=== PATIENT | female | born 1940 | race African-American/Black ===

== ENCOUNTER 2020-03-20 11:26 | Emergency (ER) | payer OTHER, MEDICAID, SELFPAY ==
[~2020-03-20] VITALS: Ht 170.2 cm; Wt 66.9 kg
[2020-03-20 11:28] VITALS: BP 129/85
--- NOTE | 2020-03-20 11:28 | NUR ---
BIBA TAKEN TO BED 4
--- NOTE | 2020-03-20 11:30 | NUR ---
BIBA BLS C/O NOT EATING OR DRINKING X AM PRE SN[facility] ([facility]) CAREGIVER . PT AWAKE , ALERT, AFIBRILE , SCE , CBS BLF , FLAT SOFT NABS , NONTENDER. NKA PAIN 0/10 HX-A-FIB, DEMENTIA ACCU-80
[2020-03-20] MEDS ORDERED: NACL 0.9% 1,000 ML IV ONE (11:35)
--- NOTE | 2020-03-20 11:42 | NUR ---
PT TO CT SCAN VIA GURNEY .STABLE V/S.
--- NOTE | 2020-03-20 11:59 | NUR ---
emt iss at bedside doin ekg
--- NOTE | 2020-03-20 12:00 | NUR ---
PT BACK FROM CT SCAN VIA [facility].
--- NOTE | 2020-03-20 12:00 | NUR ---
RN ADAM HUMMEL WITH SIMPLE MASK ON, PT WITHOUT SIMPLE MASK ON BECAUSE SHE KEEPS ON TAKING IT OFF. PT HAS A HX OF DEMENTIA. ER MD DR CASTAÑEDA WANTS PT SWAB FOR COVID-19 AFTER SEEING HER XRAY.
[2020-03-20 12:03] LABS: EOSINOPHILS # (AUTO) 0.1 K/uL (0-0.4); HEMOGLOBIN 13.4 g/dL (12.0-16.0); LYMPHOCYTES # (AUTO) 2.5 K/uL (2.5-16.5); MONOCYTES # (AUTO) 0.4 K/uL (0.8-1.0); WHITE BLOOD COUNT (AUTO) 4.6 K/uL (4.8-10.8)
--- NOTE | 2020-03-20 12:09 | NUR ---
DR CASTAÑEDA INFORMED PT O2 SATURATION WAS [address] ON HOLD.
[2020-03-20 12:10] LABS: BASOPHILS % (AUTO) 0.4 % (0.0-2.0); EOSINOPHILS % (AUTO) 1.9 % (0.0-4.0); HEMATOCRIT 43.5 % (36-48); LYMPHOCYTES % (AUTO) 54.9 % (20.5-51.1); MEAN CORPUSCULAR HEMOGLOBIN 24 pg (27-31); MEAN CORPUSCULAR HGB CONC 31 g/dL (33-37); MEAN CORPUSCULAR VOLUME 77.5 fL (80-94); MONOCYTES % (AUTO) 8.2 % (1.7-9.3); NEUTROPHILS # (AUTO) 1.6 K/uL (1.8-7.7); NEUTROPHILS % (AUTO) 34.6 % (42.2-75.2); PLATELET COUNT (AUTO) 147 K/uL (140-450); RED BLOOD CELL COUNT(AUTO) 5.61 MIL/uL (4.20-5.40); RED CELL DISTRIBUTION WIDTH 17.9 % (11.6-13.7)
[2020-03-20 12:34] LABS: ALBUMIN 3.1 g/dL (3.4-5.0); ASPARTATE AMINOTRANSFERASE 36 U/L (15-37); CHLORIDE 106 mmol/L (98-107); GLUCOSE 93 mg/dL (74-106); SODIUM SERUM 144 mmol/L (136-145); TOTAL BILIRUBIN 0.7 mg/dL (0.0-1.0); UREA NITROGEN, BLOOD 15 mg/dL (7-18)
--- NOTE | 2020-03-20 12:47 | NUR ---
# 14 FR Urinary catheter inserted utilizing sterile technique. Immediate return of CLOUDY YELLOW URIN 20ml urine noted. Urine sample collected and sent to lab. Pt tolerated procedure WELL.
[2020-03-20 12:52] LABS: APPEARANCE,URINE CLEAR (CLEAR); BILIRUBIN,URINE NEGATIVE (NEGATIVE); BLOOD, URINE 1+ (NEGATIVE); COLOR,URINE YELLOW (YELLOW); LEUKOCYTE ESTERASE ,URINE 1+ (NEGATIVE); NITRITE, URINE NEGATIVE (NEGATIVE); PH,URINE 5.5 (5.0-9.0); UGLUCOSE NEGATIVE (NEGATIVE)
[2020-03-20 13:02] LABS: WBC,URINE 16-25 (MOD) /HPF (0-5)
[2020-03-20 13:03] LABS: CALCIUM OXALATE CRYSTALS,UR 0-10 /HPF (None Seen)
[2020-03-20] MEDS ORDERED: cefTRIAXone 1,000 MG VIAL ONE (13:18)
--- NOTE | 2020-03-20 13:41 | NUR ---
COVID SWAB DONE.
[2020-03-20 14:43] VITALS: BP 133/76
--- NOTE | 2020-03-20 14:43 | NUR ---
Patient discharged with v/s stable. Written and verbal after care instructions given and explained. Patient alert, oriented and verbalized understanding of instructions. Wheel Chair Assisted with to half-way. All questions addressed prior to discharge. ID band removed. Patient advised to follow up with PMD. Rx of KEFLEX given. Patient educated on indication of medication including possible reaction and side effects. Opportunity to ask questions provided and answered.
--- NOTE | 2020-03-20 14:43 | NUR ---
Note undone in EDM - 03/20/20 at 1444 by MED1 Patient discharged with v/s stable. Written and verbal after care instructions given and explained. Patient alert, oriented and verbalized understanding of instructions. [g ED.DCMODE] with [g ED.D/CMODE]. All questions addressed prior to discharge. ID band removed. Patient advised to follow up with PMD. Rx of [] given. Patient educated on indication of medication including possible reaction and side effects. Opportunity to ask questions provided and answered.
--- NOTE | 2020-03-20 14:50 | NUR ---
JAIME MCCLENDON DC PT.
--- NOTE | 2020-03-22 02:15 | NUR ---
DUARTE ROE, PHONED AND STATED THAT SAW PT IN ER ON 03/20/2020 @1126AM AND BLOOD CULTURE RESULTS ARE BACK--> BLOOD CULTURE + FOR + GRAM COCCI. DR. CASTAÑEDA MADE AWARE, NO NEW ORDERS AT THIS TIME.
== END 2020-03-20 14:43 | disposition home or self-care (01) ==
LOC: EEVIPCON 11:26 → MED 11:26
DX: N39.0 Urinary tract infection, site not specified (principal); Z03.818 Encounter for observation for suspected exposure to other biological agents ruled out; F03.90 Unspecified dementia, unspecified severity, without behavioral disturbance, psychotic disturbance, mood disturbance, and anxiety
CPT/HCPCS: 36415; 70450; 71045; 80053; 81001; 81025; 83605; 85025; 87040; 87086; 87635; 93005; 96365; 99285; C1758; G0482; J0696; J7030; Q0092